=== PATIENT | male | born 1960 | race Caucasian/White ===

== ENCOUNTER 2019-02-07 09:14 | Outpatient (CLI) | payer BC, SELFPAY ==
--- NOTE | 2019-02-07 08:48 | DI.COMBO_ITS ---
SYMPTOM/DIAGNOSIS: PAIN LEFT WRIST, LEFT THUMB: 02/07/19 Two views of the wrist and 3 views of the thumb were obtained. There are marked degenerative changes at the greater multangular first metacarpal joint. Mild DJD of the remaining joints of the carpus is noted. Normal carpal alignment noted. There are mild degenerative changes at the first MCP joint and IP joint of the thumb. 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
== END 2019-02-07 09:34 ==
PROVIDERS: PCP Family Medicine; Visit Provider Physician Assistant Surgical
DX: M25.532 Pain in left wrist (principal); M79.645 Pain in left finger(s); M18.12 Unilateral primary osteoarthritis of first carpometacarpal joint, left hand; M19.032 Primary osteoarthritis, left wrist
CPT/HCPCS: 73100; 73140

== ENCOUNTER 2019-04-30 01:46 | Outpatient (CLI) | payer BC, SELFPAY ==
[2019-04-30 10:26] LABS: Anion Gap 8.3 mmol/L (3-11); BUN 21 mg/dL (7-18); CO2 27.7 mmol/L (21.0-32.0); CREATININE 1.13 mg/dL (0.70-1.30); Calcium 8.7 mg/dL (8.5-10.1); Calculated LDL 110 mg/dL; Chloride 105 mmol/L (98-107); Cholesterol 188 mg/dL (50-200); Glucose 94 mg/dL (70-100); HDL Cholesterol 54 mg/dL (40-60); Potassium 4.4 mmol/L (3.5-5.1); Sodium 141 mmol/L (136-145); Triglyceride 120 mg/dL (30-150)
== END 2019-04-30 02:06 ==
PROVIDERS: PCP Family Medicine; Visit Provider Family Medicine
DX: E78.5 Hyperlipidemia, unspecified (principal)
CPT/HCPCS: 36415; 80048; 80061; 83721

== ENCOUNTER 2020-04-30 02:05 | Outpatient (CLI) | payer BC, SELFPAY ==
[2020-04-30 16:48] LABS: Anion Gap 7.1 mmol/L (3-11); BUN 24 mg/dL (7-18); CO2 27.9 mmol/L (21.0-32.0); Calcium 9.1 mg/dL (8.5-10.1); Chloride 107 mmol/L (98-107); Glucose 89 mg/dL (74-106); Potassium 4.2 mmol/L (3.5-5.1); Sodium 142 mmol/L (136-145)
== END 2020-04-30 02:25 ==
PROVIDERS: PCP Family Medicine; Visit Provider Family Medicine
DX: I10 Essential (primary) hypertension (principal)
CPT/HCPCS: 36415; 80048

== ENCOUNTER 2020-06-27 04:28 | Outpatient (CLI) | payer BC, SELFPAY ==
--- NOTE | 2020-06-27 07:00 | DI.RAD_ITS ---
EXAM: XR HIP RT COMPLETE AP PELVIS CLINICAL HISTORY: pain, lower back and right hip, M54.9, dorsalgia. TECHNIQUE: 2D digital imaging was performed. COMPARISON: No exams were available for comparison FINDINGS: The right hip is well maintained. The bones are intact and normally mineralized. The sacroiliac lashaun nts and symphysis pubis are unremarkable. Dystrophic calcifications are seen in the soft tissues adj acent to the right greater trochanter and left acetabulum. No acute fracture or dislocation. IMPRESSION: No acute abnormality. DATA REPOSITORY: RADIATION DOSE DELIVERED:
--- NOTE | 2020-06-27 08:18 | DI.RAD_ITS ---
EXAM: XR LUMBAR SPINE COMPLETE CLINICAL HISTORY: pain lower back and right hip, M54.9 dorsalgia. TECHNIQUE: 2D digital imaging was performed. COMPARISON: No exams were available for comparison FINDINGS: There are 5 lumbar type vertebral bodies. There is normal alignment of the lumbar spine. No spondyl olysis or spondylolisthesis is seen. There is disc space narrowing and endplate osteophytes througho ut the lumbar spine. Degenerative changes of the facets are noted in the lower lumbar spine. No acu te fracture or subluxation is seen. IMPRESSION: Moderate degenerative changes in the lumbar spine. DATA REPOSITORY: RADIATION DOSE DELIVERED:
== END 2020-06-27 04:48 ==
PROVIDERS: PCP Nurse Practitioner Family; Visit Provider Physician Assistant
DX: M47.816 Spondylosis without myelopathy or radiculopathy, lumbar region (principal); M25.551 Pain in right hip
CPT/HCPCS: 72110; 73502

== ENCOUNTER 2020-07-17 22:09 | Emergency (ER) | payer BC, SELFPAY ==
[2020-07-17] VITALS (7 sets, daily range): BP systolic 136–154; BP diastolic 72–98; PULSE 72–90; RESP 14–16; TEMP 36.5; O2SAT 94–97
--- NOTE | 2020-07-17 22:19 | ED.GENADUL_ITS ---
Discharge Plan Disposition Patient Disposition: HOME Condition: Good Discharge Details Clinical Impression: Acute right flank pain Primary Care Provider: Juliette Bradley ED Provider: Jreemy Marshall Meds and New Rx's Prescriptions: Continued epinephrine [EpiPen] 0.3 mg/0.3 mL auto-injector 0.3 mg IM PRN Qty: 2 RF: 1 ibuprofen 200 MG capsule 800 mg PO DAILY PRNRF: 0 omeprazole 40 mg capsule,delayed release(DR/EC) 40 mg PO DAILY Qty: 90 RF: 3 simvastatin [Zocor] 20 mg tablet 20 mg PO QPM Qty: 90 RF: 4 Discharge Instructions Instructions: Flank Pain (ED) Additional Instructions: At this point there is no clear etiology for your pain. Does not appear to be related to kidney stone. Screening test for blood clot negative. No acute pathology noted on CT scan. Would follow-up with primary care for further evaluation if continued pain. May alternate ibuprofen with acetaminophen for pain. Return to ED if you develop fever, shortness of breath, chest pain, persistent vomiting, new or worsening abdominal/back pain. Referrals: Juliette Bradley, [employer] [Primary Care Provider] - Medical Decision Making Patient's presentation, symptoms and exam consistent with renal colic. He is quite uncomfortable. Will place IV and give fluids and Toradol. Check laboratory studies including urinalysis. Obtain stone study of abdomen pelvis. 23:30 - Patient's labs look okay. Creatinine a little up but has periodically been so in the past. White count normal. Liver function normal. CT scan being read as negative, no acute pathology noted. Patient is feeling better after To radol. Still seems consistent with renal colic. There is no burning neuropathic pain to suggest shingles. Pain seems to be too low to be pulmonary and is not describing pleuritic pain. I will add a d-dimer. Urine is still pending. I have discussed above with patient. 00:15 - Patient's urine is negative. D-dimer negative. Patient comfortable with minimal pain. Unclear etiology for pain. Will have him follow up with PCP. Return to ED for fever, SOB, chest pain, new/worse abdominal/back pain, persistent vomiting. Medical Records Medical records reviewed: Yes I reviewed the patient's medical records. Lab Data Lab results reviewed: Yes I reviewed the patient's lab results. HPI General Mode of arrival: ambulatory . Date/Time Provider Initiated Documentation: 07/17/20 22:19 . Limitations to Documentation: no limitations . Information obtained by: patient and RN notes reviewed . HPI Narrative: Patient presents to ED with sudden onset right flank pain at about 18:30 tonight. He was sitting on the couch when this occurred. He has never had it previously. He denies any cough, fever, shortness of breath. He denies chest pain. He denies abdominal pain, nausea or vomiting. Denies any urinary symptoms. Has constant sharp pain and inability to get comfortable. Related Data Home Medications Medication Instructions Recorded Confirmed ibuprofen 800 mg PO DAILY PRN 04/22/18 07/17/20 epinephrine 0.3 mg/0.3 mL 0.3 mg IM PRN #2 each 04/22/19 07/17/20 injection, auto-injector omeprazole 40 mg capsule,delayed 40 mg PO DAILY #90 tab-cap 02/08/20 07/17/20 release simvastatin 20 mg tablet 20 mg PO QPM #90 tab 02/08/20 07/17/20 Previous Rx's Medication Instructions Recorded epinephrine 0.3 mg/0.3 mL 0.3 mg IM PRN #2 each 04/22/19 injection, auto-injector omeprazole 40 mg capsule,delayed 40 mg PO DAILY #90 tab-cap 02/08/20 release simvastatin 20 mg tablet 20 mg PO QPM #90 tab 02/08/20 Allergies Allergy/AdvReac Type Severity Reaction Status Date / Time bee pollen Allergy Severe Anaphylaxsi Unverified 07/17/20 22:21 s sulfamethoxazole Allergy Intermediate Skin Rash Unverified 07/17/20 22:21 [From Bactrim] trimethoprim [From Bactrim] Allergy Intermediate Skin Rash Unverified 07/17/20 22:21 Review of Systems Narrative: As documented in HPI otherwise negative as below. Const: no fever, chills, weakness Resp: no cough, SOB, pleuritic pain CV: no CP, diaphoresis, edema, syncope GI: no abdominal pain, nausea, vomiting, diarrhea Neuro: no headache, numbness, focal weakness, confusion PFSH Medical History Esophageal reflux Hyperlipidemia Surgical History History of appendectomy Status post arthroscopy of shoulder Family History (Updated 05/03/19 @ 15:14 by Brian Mcrae) Mother , 72 No problems noted. Father , 59 Cancer Sister No problems noted. Sister No problems noted. Sister , 57 No problems noted. Brother Parkinson's disease Brother No problems noted. Daughter No problems noted. Social History Smoking/Tobacco Use Status: Former Tobacco Use Tobacco: How many years used: 30 Second Hand Exposure: Yes Alcohol Intake: current Alcohol Intake frequency: a few times a month Alcohol type: beer Drug use: Never Substance use type: does not use Caregiver/Support person: No Household members: spouse and other Details: Grandson Housing: house Communication Needs: Corrective Lenses Do you need help understanding health information?: Rarely Pets and animals: Yes Pets and animals: dog(s) Sexually active: Yes Do you think of yourself as: straight/heterosexual Current gender identity: male What is your relationship status?: How often do you talk on the phone with friends or family?: three or more times per week How often do you get together with friends or relatives?: twice per week How often do you attend confucianist or cheondoism services?: 1-3 times per year Do you belong to any clubs or organized social groups?: no Panel score (0-1 are the most socially isolated patients): 2 What type of physical activity do you participate in: none and decline to answer Duration: decline to answer Frequency: decline to answer Kalli/Mandaen: Jew Special kalli needs: No Seatbelt use: always Helmet use: No Drive intox or ride w/intox courtesy driver: No Do you feel safe at home: Yes Do you feel safe in your relationship?: Yes Exam Narrative Exam Narrative: Vitals: Afebrile. Hypertensive otherwise normal vitals and normal room air pulse ox. Const: WDWN male who appears uncomfortable but not ill. HEENT: NC/AT. Normal facial exam. Eyes: Normal conjunctiva and sclera. Neck: Supple. Trachea midline. Lungs: Normal respiratory effort. Lungs are clear. Cor: RRR without murmur/gallop. GI: Soft. NT/ND. No guarding or rebound. Back: No CVAT Neuro: A+O x 3. Normal speech, mentation, gait. Cranial nerves II - XII grossly intact. No gross motor or sensory deficit. Ext: No C/C/E. Skin: Warm and dry without rash.
--- NOTE | 2020-07-17 22:30 | DI.CT_ITS ---
EXAM: CT RENAL COLIC WO CLINICAL HISTORY: right flank pain. TECHNIQUE: Imaging Protocol: Axial computed tomography images with coronal and sagittal reformatted images were created and reviewed. COMPARISON: No exams were available for comparison FINDINGS: ABDOMEN: Lung Bases: Normal where visualized. Liver: Normal density. No measurable mass. Gallbladder and biliary tract: No radiodense calculus or biliary ductal dilation. Pancreas: Normal density, no abnormal calcifications or inflammatory process. Spleen: Normal. Kidneys: Normal size, contour and axis.No radiodense stones or obstructive uropathy. Small bilateral parapelvic cysts. Adrenal glands: No mass is seen. Lymph nodes: Within normal limits. Abdominal Aorta: Abdominal portion non-dilated. PELVIS: Bladder:Symmetric distention, no gross wall thickening. Bowel: No obstruction or bowel wall thickening. No evidence of appendicitis. Peritoneal cavity: No ascites, collection or mesenteric inflammatory response Reproductive organs: Within normal limits. Bones: Mild degenerative changes in the spine. Soft Tissues: Small fat containing umbilical hernia. IMPRESSION: No evidence of nephrolithiasis or hydronephrosis. RADIATION DOSE DELIVERED: 874.16mGy.cm Total DLP DATA REPOSITORY: All CT scans at this facility are submitted to the National Radiology Data Registry (NRDR) Dose Index Registry (DIR) with the [employer] (A[employer]). RADIATION OPTIMIZATION: All CT scans at this facility use at least one of these dose optimization te chniques: automated exposure control; mA and/or kV adjustment per patient size (includes targeted exa ms where dose is matched to clinical indication); or iterative reconstruction.
[2020-07-17] MEDS: Lactated Ringers 1,000 ML 1000 ML IV (22:43)
[2020-07-17] MEDS: Ketorolac 30 MG/ML VIAL 15 MG IVP (22:49)
[2020-07-17] MEDS: Normal Saline Flush 10 ML SYR IVP (22:50)
[2020-07-17 23:00] LABS: Abs Immature Grans 0.02 10^3/uL (0.0-0.06); Absolute Basophil Count 0.04 10^3/uL (0.0-0.2); Absolute Eosinophil Count 0.22 10^3/uL (0.0-0.7); Absolute Lymphocyte Count 2.75 10^3/uL (1.2-3.4); Absolute Monocyte Count 0.53 10^3/uL (0.1-0.8); Absolute Neutrophil Count 4.06 10^3/uL (1.2-6.7); Basophils % 0.5; Eosinophils % 2.9; HCT 39.3 % (40.0-50.0); HGB 13.5 g/dL (13.5-17.5); Immature Grans % 0.3; Lymphocytes % 36.1; MCH 29.3 pg (27.0-33.0); MCHC 34.4 % (32.0-36.0); MCV 85.2 fL (80-95); MPV 9.1 fL (8.0-11.0); Neutrophils % 53.2; Nucleated RBC 0 %; Platelet Count 205 10^3/uL (130-400); RBC 4.61 10^6/uL (4.36-5.78); RDW 12.3 % (11.8-14.1); RDW-SD 37.8 fL; WBC 7.62 10^3/uL (4.4-10.8)
[2020-07-17 23:14] LABS: ALT 14 U/L (16-63); AST 20 U/L (15-37); Albumin 3.8 g/dL (3.4-5.0); Alkaline Phosphatase 60 U/L (46-116); Anion Gap 8.2 mmol/L (3-11); BUN 26 mg/dL (7-18); Bilirubin, Total 0.3 mg/dL (0.2-1.0); CO2 24.8 mmol/L (21.0-32.0); CREATININE 1.39 mg/dL (0.70-1.30); Calcium 9.1 mg/dL (8.5-10.1); Chloride 105 mmol/L (98-107); Estimated GFR 51.95 (mL/min/1.73m2); Glucose 112 mg/dL (74-106); Potassium 4.1 mmol/L (3.5-5.1); Sodium 138 mmol/L (136-145); Total Protein 7.3 g/dL (6.4-8.2)
--- NOTE | 2020-07-17 23:20 | DI.VRAD_ITS ---
PROCEDURE INFORMATION: Exam: CT Abdomen And Pelvis Without Contrast Exam date and time: 07/17/2020 23:04 Age: 60 years old Clinical indication: Other: R flank; Prior surgery; Surgery date: 6+ months; Surgery type: Appendectomy; Patient HX: Sudden onset of severe right flank pain 3 1/2 hours ago TECHNIQUE: Imaging protocol: Computed tomography of the abdomen and pelvis without contrast. Radiation optimization: All CT scans at this facility use at least one of these dose optimization techniques: automated exposure control; mA and/or kV adjustment per patient size (includes targeted exams where dose is matched to clinical indication); or iterative reconstruction. COMPARISON: CT ABD PELVIS WITH CONTRAST 08/23/2014 10:03 FINDINGS: Liver: The No hepatic masses on noncontrast imaging. Gallbladder and bile ducts: No calcified stones. No ductal dilation. Pancreas: No ductal dilation. No masses. Spleen: No splenomegaly or focal lesions. Adrenals: No mass. Kidneys and ureters: Benign-appearing parapelvic cysts in the kidneys. No nephrolithiasis or collecting system obstruction. Stomach and bowel: No obstruction. No mucosal thickening. Appendix: No evidence of appendicitis. Intraperitoneal space: No free air. No significant fluid collection. Vasculature: No abdominal aortic aneurysm. Lymph nodes: No significantly enlarged lymph nodes. Bladder: Unremarkable as visualized. Reproductive: Mild prostatic enlargement. Bones/joints: Degenerative changes in the spine. No acute fracture or subluxation. Soft tissues: Tiny fat containing inguinal hernia bilaterally. Small fat-containing umbilical hernia. IMPRESSION: 1. No acute findings. 2. No nephrolithiasis or collecting system obstruction. 3. Incidental findings as described. Dictated and Authenticated by: Tiesha Diaz MD. Ordering:NATALIE Luna MD
[2020-07-17 23:45] LABS: Bilirubin Negative (Negative); Blood Trace-intact (Negative); Clarity Clear (Clear); Glucose Negative (Negative); Ketones Negative (Negative); Leukocyte Esterase Negative (Negative); Nitrite Negative (Negative); Specific Gravity >= 1.030 (1.005-1.025); Urobilinogen 0.2 EU/dL (Up TO 0.2)
[2020-07-17 23:59] LABS: Bacteria Negative HPF (Negative); C & S Indicated? No; Casts Negative LPF (Negative); Crystals Negative HPF (Negative); Epithelial Cells Negative HPF (Negative); Mucus Negative (Negative); RBC 0-2 HPF (0-2); WBC 0-2 HPF (0-5)
[2020-07-18] VITALS: BP 127/67; PULSE 70; O2SAT 94
[2020-07-18 00:01] VITALS: O2SAT 95
[2020-07-18 00:06] LABS: D-Dimer 454 ng/mlFEU (<500)
[2020-07-18 00:21] VITALS: BP 127/67; PULSE 70; RESP 16; TEMP 36.8; O2SAT 95
== END 2020-07-18 00:25 | disposition home or self-care (01) ==
PROVIDERS: Emergency Provider Emergency Medicine; PCP Nurse Practitioner Family
DX: R10.31 Right lower quadrant pain (principal)
CPT/HCPCS: 36415; 80053; 96361; 96374; 99284; 74176; 81003; 81015; 85025; 85379; J1885

== ENCOUNTER 2021-06-19 02:56 | Outpatient (CLI) | payer BC, SELFPAY ==
[2021-06-19 16:45] LABS: Hemoglobin A1C 5.7 % (<5.7)
[2021-06-19 17:28] LABS: Anion Gap 9.3 mmol/L (3-11); BUN 22 mg/dL (7-18); CO2 26.7 mmol/L (21.0-32.0); CREATININE 1.2 mg/dL (0.70-1.30); Calcium 9.1 mg/dL (8.5-10.1); Calculated LDL 135 mg/dL (<100); Chloride 108 mmol/L (98-107); Cholesterol 210 mg/dL (<200); Glucose 90 mg/dL (74-106); HDL Cholesterol 58 mg/dL (40-60); Potassium 4.1 mmol/L (3.5-5.1); Sodium 144 mmol/L (136-145); Triglyceride 89 mg/dL (<150)
[2021-06-20 17:20] LABS: PSA, Screening 3.9 ng/mL (0.0-4.5)
== END 2021-06-19 02:57 | disposition home or self-care (01) ==
LOC: LBO 02:57
PROVIDERS: PCP Nurse Practitioner Family; Visit Provider Nurse Practitioner Family
DX: Z00.00 Encounter for general adult medical examination without abnormal findings (principal); E78.5 Hyperlipidemia, unspecified; Z13.1 Encounter for screening for diabetes mellitus; Z12.5 Encounter for screening for malignant neoplasm of prostate
CPT/HCPCS: 36415; 80048; 80061; 84153; 83036

== ENCOUNTER 2022-10-09 11:36 | Outpatient (REF) | payer SELFPAY ==
--- NOTE | 2022-10-09 13:50 | SKI_PTH ---
PATIENT: Jose Eduardo Shaikh JR LOC: [facility] #:[id number] AGE/SX: 62/M ROOM: RE10/09/[address]: JEET Berry : 1960 BED: DIS: 10/09/2022 SPEC #: [id number] RECD: 10/10/22 12:34 STATUS: SELAM REQ #: [id number] TD: 10/09/22 13:[address]: Juliette Bradley DEPT: Surgical Specimen RECD BY: Maria Del Carmen [facility] Tissues: 1 - SKIN CYST/TAG/DEBRIDEMENT Procedures: GROSS AND MICRO LEVEL 3 Comments: [id number]
== END 2022-10-09 11:37 | disposition home or self-care (01) ==
LOC: LBN 11:36
PROVIDERS: PCP Nurse Practitioner Family; Visit Provider Nurse Practitioner Family
DX: D21.6 Benign neoplasm of connective and other soft tissue of trunk, unspecified (principal)
CPT/HCPCS: 88304

== ENCOUNTER 2023-12-31 15:41 | Outpatient (REF) | payer SELFPAY ==
[2023-12-31 21:02] LABS: Anion Gap 8.5 mmol/L (3-11); BUN 20 mg/dL (7-18); CO2 27.5 mmol/L (21.0-32.0); CREATININE 1.2 mg/dL (0.70-1.30); Calcium 9.3 mg/dL (8.5-10.1); Calculated LDL 103 mg/dL (<100); Chloride 106 mmol/L (98-107); Cholesterol 189 mg/dL (<200); Estimated GFR 67.53 (mL/min/1.73m2); Glucose 99 mg/dL (74-106); HDL Cholesterol 53 mg/dL (40-60); Potassium 4.4 mmol/L (3.5-5.1); Sodium 142 mmol/L (136-145); Triglyceride 165 mg/dL (<150)
[2023-12-31 21:16] LABS: Hemoglobin A1C 5.6 % (<5.7)
[2024-01-01 20:49] LABS: PSA, Screening 5.3 ng/mL (<=4.5)
[2024-01-04 11:49] LABS: Hepatitis C Ab w Rflx HCV PCR Negative (Negative)
== END 2023-12-31 15:42 | disposition home or self-care (01) ==
LOC: LBN 15:41
PROVIDERS: PCP Nurse Practitioner Family; Visit Provider Nurse Practitioner Family
DX: Z00.00 Encounter for general adult medical examination without abnormal findings (principal); Z13.220 Encounter for screening for lipoid disorders; Z13.228 Encounter for screening for other metabolic disorders; Z12.5 Encounter for screening for malignant neoplasm of prostate; Z11.59 Encounter for screening for other viral diseases; Z13.1 Encounter for screening for diabetes mellitus
CPT/HCPCS: 80048; 80061; 84153; 86803; 83036

== ENCOUNTER 2024-02-18 05:53 | Outpatient (CLI) | payer SELFPAY ==
[2024-02-18 18:12] LABS: PSA, Screening 6.6 ng/mL (<=4.5)
== END 2024-02-18 05:54 | disposition home or self-care (01) ==
PROVIDERS: PCP Nurse Practitioner Family; Visit Provider Nurse Practitioner Family
DX: Z12.5 Encounter for screening for malignant neoplasm of prostate (principal)
CPT/HCPCS: 36415; 84153

== ENCOUNTER → 2024-05-24 12:42 | Outpatient (BNVA) | payer MEDICARE, SELFPAY | PROVIDERS: PCP Nurse Practitioner Family; Referring Provider Nurse Practitioner Family; Visit Provider Nurse Practitioner Gerontology | DX: N42.89 Other specified disorders of prostate (principal); R97.20 Elevated prostate specific antigen [PSA] | CPT/HCPCS: 51798; 99204 ==

== ENCOUNTER → 2024-06-20 08:44 | Outpatient (BNVA) | payer MEDICARE, SELFPAY | PROVIDERS: PCP Nurse Practitioner Family; Referring Provider Nurse Practitioner Family; Visit Provider Nurse Practitioner Gerontology | DX: N42.89 Other specified disorders of prostate (principal); M25.552 Pain in left hip; R97.20 Elevated prostate specific antigen [PSA] | CPT/HCPCS: 99213 ==

== ENCOUNTER → 2024-06-29 10:47 | Outpatient (BNVA) | payer MEDICARE, SELFPAY | PROVIDERS: PCP Nurse Practitioner Family; Referring Provider Nurse Practitioner Family; Visit Provider Nurse Practitioner Gerontology | DX: N42.89 Other specified disorders of prostate (principal); R97.20 Elevated prostate specific antigen [PSA] | CPT/HCPCS: 99442 ==

== ENCOUNTER 2024-12-27 14:49 | Outpatient (CLI) | payer MEDICARE, SELFPAY ==
[2024-12-27 14:05] LABS: Anion Gap 6.9 mmol/L (3-11); BUN 18 mg/dL (7-18); CO2 29.1 mmol/L (21.0-32.0); CREATININE 1.2 mg/dL (0.70-1.30); Calcium 9.4 mg/dL (8.5-10.1); Chloride 107 mmol/L (98-107); Estimated GFR 67.11 (mL/min/1.73m2); Glucose 106 mg/dL (74-106); Potassium 4.4 mmol/L (3.5-5.1); Sodium 143 mmol/L (136-145); Vitamin B12 752 pg/mL (193-986)
[2024-12-27 23:27] LABS: PSA, Diagnostic 5.3 ng/mL (<=4.5)
== END 2024-12-27 14:50 | disposition home or self-care (01) ==
PROVIDERS: Nurse Practitioner Gerontology; PCP Nurse Practitioner Family; Visit Provider Nurse Practitioner Family
DX: K21.9 Gastro-esophageal reflux disease without esophagitis (principal); R97.20 Elevated prostate specific antigen [PSA]
CPT/HCPCS: 36415; 80048; 82607; 84153

== ENCOUNTER → 2025-01-04 12:38 | Outpatient (BNVA) | payer MEDICARE, SELFPAY | PROVIDERS: PCP Nurse Practitioner Family; Referring Provider Nurse Practitioner Family; Visit Provider Nurse Practitioner Gerontology | DX: N42.89 Other specified disorders of prostate (principal); R97.20 Elevated prostate specific antigen [PSA] | CPT/HCPCS: 99213 ==

== ENCOUNTER 2025-07-05 16:45 | Outpatient (CLI) | payer MEDICARE, SELFPAY ==
[2025-07-05 18:15] LABS: PSA, Diagnostic 6.9 ng/mL (<=4.5)
== END 2025-07-05 16:46 | disposition home or self-care (01) ==
PROVIDERS: PCP Nurse Practitioner Family; Visit Provider Nurse Practitioner Gerontology
DX: R97.20 Elevated prostate specific antigen [PSA] (principal)
CPT/HCPCS: 36415; 84153

== ENCOUNTER → 2025-07-12 08:41 | Outpatient (BNVA) | payer MEDICARE, SELFPAY | PROVIDERS: PCP Nurse Practitioner Family; Visit Provider Nurse Practitioner Gerontology | DX: R97.20 Elevated prostate specific antigen [PSA] (principal) | CPT/HCPCS: 99213 ==